=== PATIENT | female | born 1990 | race Caucasian/White ===

== ENCOUNTER 2023-12-14 18:19 | Inpatient (IN) | payer BC, SELFPAY ==
[2023-12-14] MEDS ORDERED: hydrALAZINE 20 MG/ML VIAL SLOW IVP PRN (18:53)
[2023-12-14 19:39] VITALS: BMI 17.0
[2023-12-14] MEDS: Atorvastatin Calcium 40 MG TAB PO SCH (21:38)
[2023-12-15] MEDS: Acetaminophen 500 MG TAB PO PRN (04:23)
[2023-12-15 09:00] LABS: INR-International Normal Ratio 1.1; Prothrombin Time 14.1 sec (12.0-14.7)
[2023-12-15 09:01] LABS: PTT 30.3 sec (22.9-36.1)
[2023-12-15 09:02] LABS: D-Dimer Test 0.28 mcg/mL (0.27-0.43)
[2023-12-15] MEDS: Aspirin 325 mg Enteric Coated Tablet PO SCH (09:45)
[2023-12-15] MEDS: Enoxaparin 40 MG (0.4 mL) SYRINGE SC SCH (09:48)
[2023-12-15 10:11] VITALS: BMI 16.7
[2023-12-15 12:18] LABS: Cardiolipin IgA Ab 2.5 APL-U/mL (<14 Negative); Cardiolipin IgG Ab 1.2 GPL-U/mL (<10 Negative); Cardiolipin IgM Ab 2.1 MPL-U/mL (<10 Negative); EliA APS New Method **** NEW METHOD ****
[2023-12-15 13:37] LABS: Amphetamine Not Detected (NotDetected); Barbiturates Screen Not Detected (NotDetected); Benzodiazepine Screen Not Detected (NotDetected); Cocaine Metabolite Screen Not Detected (NotDetected); Methadone Not Detected (NotDetected); Methamphetamine Not Detected (NotDetected); Opiate Screen Not Detected (NotDetected); Oxycodone Screen Not Detected (NotDetected); Phencyclidine (PCP) Not Detected (NotDetected); THC/Cannabinoid Screen Not Detected (NotDetected); Tricyclic Screen Not Detected (NotDetected)
[2023-12-16 04:13] LABS: #Basophils Less than 0.03 10x3/uL (0.0-0.2); %Basophils 0.3 % (0.0-1.0); %Eosinophils 5.3 % (0.0-10.0); %Monocytes 6.3 % (0.0-10.0); Hematocrit 37.2 % (36.0-47.0); Hemoglobin 12.9 g/dL (12.0-16.0); Mean Corpuscular HGB CONC 34.7 g/dL (32.0-36.0); Mean Corpuscular Hemoglobin 32.3 pg (27.0-31.0); Mean Platelet Volume 11.8 fL (7.4-10.4); Platelet Count 169 10x3/uL (130-400); RBC Distribution Width 11.9 % (11.5-14.5)
[2023-12-16 04:24] LABS: Anion Gap 11 mmol/L (10-20); BUN (Urea Nitrogen) 9 mg/dL (7.0-18.7); Calc. Creatinine Clearance 85 mL/min (70-130); Calcium 8.6 mg/dL (7.8-10.44); Carbon Dioxide 22 mmol/L (22-29); Chloride 106 mmol/L (98-107); Estimated GFR 117; Glucose 88 mg/dL (70-105); Potassium 3.6 mmol/L (3.5-5.1); Sodium 135 mmol/L (136-145)
[2023-12-16] MEDS: Escitalopram Oxalate 10 mg Tablet PO SCH (09:12)
[2023-12-17] MEDS: FLU (Fluarix Triv) TS24-25(6MOS UP)/PF 45 MCG/0.5 ML Syringe IM ONE (21:15)
[2023-12-18] MEDS ORDERED: Lidocaine 1% PF 5 ML VIAL ONE (09:33)
[2023-12-18] MEDS ORDERED: PROPOFOL 200 MG/20 ML VIAL ONE (09:33)
[2023-12-18 12:32] VITALS: BP 100/59; TEMP 98.4
== END 2023-12-18 15:17 | disposition home or self-care (01) | DRG 65 ==
LOC: 2SE 18:19 → OBSVTOIN 18:55
PROVIDERS: ADMIT Internal Medicine; ATTEND Student in an Organized Health Care Education/Training Program
PROC: B24BZZ4 Ultrasonography of Heart with Aorta, Transesophageal (ICD-10-PCS; principal; 2023-12-15)
DX: I63.9 Cerebral infarction, unspecified (principal); Q21.12 Patent foramen ovale; F41.9 Anxiety disorder, unspecified; F32.A Depression, unspecified; F17.210 Nicotine dependence, cigarettes, uncomplicated; Z79.899 Other long term (current) drug therapy; R29.701 NIHSS score 1
CPT/HCPCS: 36415; 70551; 80048; 80061; 80306; 83090; 85025; 85300; 85303; 85306; 85307; 85598; 85610; 85730; 86147; 93306; 93312; J1650; J2704